=== PATIENT | female | born 1995 | race Caucasian/White ===

== ENCOUNTER 2017-04-03 00:23 | Emergency (ER) | payer OTHER ==
[~2017-04-03] VITALS: Ht 132.1 cm; Wt 55.0 kg
[2017-04-03] MEDS ORDERED: ONDANSETRON 2MG/ML, 2ML ONE (00:46)
[2017-04-03] MEDS ORDERED: ONDANSETRON 2MG/ML, 2ML IVPush ONE (01:00)
[2017-04-03] MEDS ORDERED: METOCLOPRAMIDE 5 MG/ML, 2ML IVPush ONE (01:00)
[2017-04-03] MEDS ORDERED: METOCLOPRAMIDE 5 MG/ML, 2ML ONE (01:03)
[2017-04-03 03:05] VITALS: BP 113/52
[2017-04-03 04:17] LABS: PATH.CAST-FLAG NOT PRESENT; SPERM-FLAG NOT PRESENT; SRC-FLAG NOT PRESENT; XTAL-FLAG NOT PRESENT; YLC-FLAG NOT PRESENT
== END 2017-04-03 03:06 | disposition home or self-care (01) ==
LOC: ED 03:00
DX: O26.892 Other specified pregnancy related conditions, second trimester (principal); Z3A.18 18 weeks gestation of pregnancy; Z88.5 Allergy status to narcotic agent; Z88.8 Allergy status to other drugs, medicaments and biological substances
CPT/HCPCS: 76805; 81001; 87086; 96374; 99285; J2765

== ENCOUNTER 2020-03-21 13:27 | Inpatient (IN) | payer MEDICAID, OTHER ==
[~2020-03-21] VITALS: Ht 134.6 cm; Wt 53.2 kg
[2020-03-21] MEDS ORDERED: ACETAMINOPHEN 500 MG TABLET ONE (13:56)
[2020-03-21] MEDS ORDERED: SODIUM CHLORIDE FLUSH 10ML SYR IVF ONE (14:00)
[2020-03-21] MEDS ORDERED: METOCLOPRAMIDE 5 MG/ML, 2ML IVPush ONE (14:00)
[2020-03-21] MEDS ORDERED: ACETAMINOPHEN 500 MG TABLET PO ONE (14:00)
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
[2020-03-21] MEDS ORDERED: METOCLOPRAMIDE 5 MG/ML, 2ML ONE (14:25)
[2020-03-21] MEDS ORDERED: HYDROmorphone 1 MG/ML, 1ML INJ ONE ×2 (14:25→17:52)
[2020-03-21] MEDS: HYDROmorphone 2 MG/ML, 1ML IVPush PRN ×2 (14:27→17:54)
--- NOTE | 2020-03-21 14:35 | NUR ---
MEDICATED PER ORDERS, IV AND LABS COMPLETE.
[2020-03-21 14:49] LABS: MEAN CORPUSCULAR HEMOGLOBIN 27.5 pg (27.0-34.8); MEAN CORPUSCULAR HGB CONC 33.5 g/dL (32.4-35.8); MEAN CORPUSCULAR VOLUME 82.1 fL (80-100); MEAN PLATELET VOLUME 8.2 fL (7.4-10.4); PLATELET COUNT 379 x10^3/uL (130-400); RED BLOOD COUNT 3.95 x10^6/uL (3.82-5.3); RED CELL DISTRIBUTION WIDTH 15.9 % (9.6-15.2)
[2020-03-21 15:00] LABS: ALANINE AMINOTRANSFERASE 41 U/L (12-78); ALBUMIN 2.3 g/dL (3.4-5.0); ANION GAP 9 mmol/L (5-15); CALCIUM 8.3 mg/dL (8.5-10.1); CHLORIDE 99 mmol/L (98-107); CREATININE 0.48 mg/dL (0.55-1.02)
[2020-03-21 15:02] LABS: ALKALINE PHOSPHATASE 279 U/L (45-117); BILIRUBIN,TOTAL 0.6 mg/dL (0.2-1.0); TOTAL PROTEIN 7.4 g/dL (6.4-8.2)
[2020-03-21 15:14] LABS: MD YES
[2020-03-21 15:17] LABS: BAND#(MANUAL) 0.41 x10^3/uL; BANDS%(MANUAL) 2 % (0-7); LYMPH#(MANUAL) 3.93 x10^3/uL (1-3.4); LYMPHS% (MANUAL) 19 % (22-44); MONOS#(MANUAL) 1.66 x10^3/uL (0.3-2.7); MONOS% (MANUAL) 8 % (2-9); SEGS% (MANUAL) 71 % (42-75)
[2020-03-21 15:18] LABS: <PLATELET ESTIMATE> ADEQUATE; <PLT MORPHOLOGY> NORMAL PLT MORPH; ANISOCYTOSIS 1+
--- NOTE | 2020-03-21 15:23 | NUR ---
ASSISTED TO [facility] FOR UA.
--- NOTE | 2020-03-21 16:05 | NUR ---
PT RESTING, TEMP DECREASED TO 100.4. VSS
[2020-03-21 16:33] LABS: MICROSCOPIC INDICATED
--- NOTE | 2020-03-21 17:11 | NUR ---
pt in ct
[2020-03-21] MEDS ORDERED: CEFTRIAXONE PMX 2GM/50ML 50 ML ONE (17:23)
[2020-03-21] MEDS ORDERED: SODIUM CHLORIDE 0.9% 1,000ML IVBOLUS ONE (17:30)
[2020-03-21] MEDS ORDERED: CEFTRIAXONE PMX 2GM/50ML 50 ML IV SCH (17:30)
[2020-03-21] MEDS ORDERED: GADOTERATE 7.5 MMOL/15 ML SYR ONE (17:30)
--- NOTE | 2020-03-21 18:01 | NUR ---
PT BACK FROM MRI. MEDICATED FOR PAIN, ABX AND IVF. BLOOD CULTURES COMPLETE. [facility] AT BEDSIDE.
--- NOTE | 2020-03-21 18:48 | NUR ---
REPORT TO SHEELA
[2020-03-21] MEDS ORDERED: POLYETHYLENE GLYCOL 17 GM PACKET PO PRN (19:00)
[2020-03-21] MEDS ORDERED: BISACODYL 10 MG SUPP PR PRN (19:00)
--- NOTE | 2020-03-21 19:13 | NUR ---
PT PROVIDED ICE CHIPS AND BLANKET REQUESTED NO FURTHER NEEDS AT THIS TIME.
--- NOTE | 2020-03-21 19:52 | NUR ---
PT REMOVED MONITORING DOES NOT WANT VITALS AT THIS TIME. STS SHE WANTS TO JUST SLEEP
--- NOTE | 2020-03-21 20:29 | NUR ---
REPORT TO SANTOS LOZANO PT READY FOR TRANSPORT TO [facility]
[2020-03-21 21:00] VITALS: BP 126/66
[2020-03-21] MEDS ORDERED: VANCOMYCIN PER PHARMACY MC PRN (21:00)
[2020-03-21] MEDS: KETOROLAC 30 MG/1 ML IVPush PRN (21:27)
[2020-03-21] MEDS: HYDROmorphone 1 MG/ML, 1ML INJ IVPush PRN (21:28)
[2020-03-21] MEDS ORDERED: PHARMACOKINETIC MONITORING MC PRN (21:30)
[2020-03-21] MEDS ORDERED: PHARMACOKINETIC CONSULTATION MC ONE (21:30)
[2020-03-21] MEDS ORDERED: VANCOMYCIN 1,200 MG in SODIUM CHLORIDE 0.9% 250 ML IV ONE (21:30)
[2020-03-21] MEDS: SODIUM CHLORIDE 0.9% 1,000 ML IV SCH (22:02)
[2020-03-21] MEDS: PIPERACILLIN/TAZO/PMX 3.375GM 50 ML IV SCH (22:03)
[2020-03-21] MEDS: POTASSIUM CHLORIDE 20 MEQ TAB.ER.PRT PO SCH (22:03)
[2020-03-21] MEDS: HEPARIN 5,000 UNITS/ML, 1ML SQ SCH (22:04)
[2020-03-22 01:31] VITALS: BP 116/55
[2020-03-22] MEDS: HYDROmorphone 1 MG/ML, 1ML INJ IVPush PRN (02:54)
[2020-03-22 03:19] LABS: MICROSCOPIC INDICATED
[2020-03-22 03:25] LABS: AMPHETAMINE SCREEN, URINE Negative (Negative); BARBITURATE SCREEN, URINE Negative (Negative); BENZODIAZEPINE SCREEN, URINE Negative (Negative); CANNABINOID SCREEN, URINE Positive (Negative); COCAINE SCREEN, URINE Negative (Negative); METHADONE SCREEN, URINE Negative (Negative); OPIATE SCREEN, URINE Positive (Negative)
[2020-03-22] MEDS: KETOROLAC 30 MG/1 ML IVPush PRN ×4 (04:34→23:22)
[2020-03-22] MEDS: PIPERACILLIN/TAZO/PMX 3.375GM 50 ML IV SCH ×4 (04:37→23:05)
[2020-03-22] MEDS: HEPARIN 5,000 UNITS/ML, 1ML SQ SCH ×3 (06:09→22:00)
[2020-03-22 06:10] LABS: MEAN CORPUSCULAR HEMOGLOBIN 27.2 pg (27.0-34.8); MEAN CORPUSCULAR VOLUME 82.4 fL (80-100); MEAN PLATELET VOLUME 8.4 fL (7.4-10.4); PLATELET COUNT 379 x10^3/uL (130-400); RED BLOOD COUNT 3.89 x10^6/uL (3.82-5.3); RED CELL DISTRIBUTION WIDTH 16.3 % (9.6-15.2)
[2020-03-22 06:15] LABS: ANION GAP 9 mmol/L (5-15); CALCIUM 8.1 mg/dL (8.5-10.1); CHLORIDE 102 mmol/L (98-107)
[2020-03-22] MEDS ORDERED: OMNIPAQUE 350 MG/ML, 100ML BOTTLE ONE (06:17)
[2020-03-22 06:18] LABS: CREATININE 0.54 mg/dL (0.55-1.02)
[2020-03-22 07:29] LABS: BASOPHILS # (AUTO) 0.01 x10^3/uL (0-0.1); BASOPHILS % (AUTO) 0 % (0-1); EOSINOPHILS % (AUTO) 0 % (1-7); LYMPHOCYTES # (AUTO) 1.51 x10^3/uL (1-3.4); LYMPHOCYTES % (AUTO) 8 % (22-44); MD SCAN; MONOCYTES # (AUTO) 1.26 x10^3/uL (0.2-0.8); MONOCYTES % (AUTO) 6 % (2-9); NEUTROPHILS # (AUTO) 17.36 x10^3/uL (1.8-6.8); NEUTROPHILS % (AUTO) 86 % (42-75)
[2020-03-22] MEDS: SODIUM CHLORIDE 0.9% 1,000 ML IV SCH (08:00)
[2020-03-22 08:09] VITALS: BP 127/72
[2020-03-22] MEDS: POTASSIUM CHLORIDE 20 MEQ TAB.ER.PRT PO SCH (08:34)
[2020-03-22] MEDS: SENNA/DOCUSATE TABLET PO SCH (08:35)
[2020-03-22] MEDS: VANCOMYCIN PMX 1GM/200ML 200 ML IV SCH ×2 (11:26→23:55)
[2020-03-22] MEDS: ACETAMINOPHEN 325 MG TABLET PO PRN ×2 (11:26→23:05)
[2020-03-22 14:54] VITALS: BP 115/64
[2020-03-22] MEDS ORDERED: LIDOCAINE 1%, 10ML ONE (15:43)
[2020-03-22] MEDS ORDERED: FLUMAZENIL 0.1 MG/1 ML, 5ML ONE (15:52)
[2020-03-22] MEDS ORDERED: MIDAZOLAM 1 MG/ML, 5ML ONE (15:52)
[2020-03-22] MEDS ORDERED: FENTANYL PF 100 MCG/2ML ONE (15:52)
[2020-03-22] MEDS ORDERED: NALOXONE 1 MG/ML, 2ML ONE (15:52)
[2020-03-22 19:58] VITALS: BP 117/66
[2020-03-22] MEDS: OXYcodone IR 5MG TABLET PO PRN (22:17)
[2020-03-23] MEDS: SODIUM CHLORIDE 0.9% 1,000 ML IV SCH ×2 (02:49→23:37)
[2020-03-23 04:05] VITALS: BP 97/60
[2020-03-23] MEDS: PIPERACILLIN/TAZO/PMX 3.375GM 50 ML IV SCH ×3 (05:20→17:33)
[2020-03-23] MEDS: KETOROLAC 30 MG/1 ML IVPush PRN ×3 (05:20→18:49)
[2020-03-23] MEDS: HEPARIN 5,000 UNITS/ML, 1ML SQ SCH ×3 (05:20→23:38)
[2020-03-23 05:21] LABS: MEAN CORPUSCULAR HEMOGLOBIN 27.3 pg (27.0-34.8); MEAN CORPUSCULAR HGB CONC 32.7 g/dL (32.4-35.8); MEAN CORPUSCULAR VOLUME 83.6 fL (80-100); MEAN PLATELET VOLUME 8.5 fL (7.4-10.4); PLATELET COUNT 430 x10^3/uL (130-400); RED CELL DISTRIBUTION WIDTH 16.4 % (9.6-15.2)
[2020-03-23 05:26] LABS: ANION GAP 6 mmol/L (5-15); CALCIUM 8.2 mg/dL (8.5-10.1); CHLORIDE 109 mmol/L (98-107)
[2020-03-23 07:08] LABS: BASOPHILS # (AUTO) 0.08 x10^3/uL (0-0.1); BASOPHILS % (AUTO) 0 % (0-1); EOSINOPHILS # (AUTO) 0.07 x10^3/uL (0-0.4); EOSINOPHILS % (AUTO) 0 % (1-7); LYMPHOCYTES # (AUTO) 2.17 x10^3/uL (1-3.4); LYMPHOCYTES % (AUTO) 12 % (22-44); MD SCAN; MONOCYTES # (AUTO) 0.65 x10^3/uL (0.2-0.8); MONOCYTES % (AUTO) 4 % (2-9); NEUTROPHILS # (AUTO) 15.11 x10^3/uL (1.8-6.8); NEUTROPHILS % (AUTO) 84 % (42-75)
[2020-03-23 07:36] VITALS: BP 122/69
[2020-03-23] MEDS: SENNA/DOCUSATE TABLET PO SCH ×2 (08:31→08:33)
[2020-03-23] MEDS: SENNOSIDES 8.6 MG TABLET PO SCH ×2 (08:31→08:33)
[2020-03-23] MEDS: OXYcodone IR 5MG TABLET PO PRN ×3 (08:32→21:49)
[2020-03-23] MEDS ORDERED: POTASSIUM PHOSPHATE 44 MEQ in SODIUM CHLORIDE 0.9% 500 ML IV ONE (09:00)
[2020-03-23] MEDS: VANCOMYCIN PMX 1GM/200ML 200 ML IV SCH ×2 (11:34→23:00)
[2020-03-23] MEDS: ACETAMINOPHEN 325 MG TABLET PO PRN ×2 (12:34→18:49)
[2020-03-23 12:46] VITALS: BP 127/71
[2020-03-23 14:50] LABS: CLOSTRIDIUM DIFFICILE ANTIGEN NEGATIVE; CLOSTRIDIUM DIFFICILE TOXIN NEGATIVE (Negative)
[2020-03-23 18:41] VITALS: BP 128/66
[2020-03-23] MEDS: VANCOMYCIN 1,200 MG in SODIUM CHLORIDE 0.9% 250 ML IV SCH (23:50)
[2020-03-24 01:09] VITALS: BP 120/69
[2020-03-24] MEDS: ACETAMINOPHEN 325 MG TABLET PO PRN ×2 (01:18→19:54)
[2020-03-24] MEDS: KETOROLAC 30 MG/1 ML IVPush PRN ×3 (01:22→20:25)
[2020-03-24] MEDS: OXYcodone IR 5MG TABLET PO PRN ×5 (02:42→16:48)
[2020-03-24 05:45] LABS: BASOPHILS # (AUTO) 0.13 x10^3/uL (0-0.1); BASOPHILS % (AUTO) 1 % (0-1); EOSINOPHILS # (AUTO) 0.12 x10^3/uL (0-0.4); EOSINOPHILS % (AUTO) 1 % (1-7); LYMPHOCYTES # (AUTO) 1.56 x10^3/uL (1-3.4); LYMPHOCYTES % (AUTO) 9 % (22-44); MD NO; MEAN CORPUSCULAR HGB CONC 32.5 g/dL (32.4-35.8); MEAN CORPUSCULAR VOLUME 83.1 fL (80-100); MEAN PLATELET VOLUME 8.1 fL (7.4-10.4); MONOCYTES # (AUTO) 0.73 x10^3/uL (0.2-0.8); MONOCYTES % (AUTO) 4 % (2-9); NEUTROPHILS # (AUTO) 14.18 x10^3/uL (1.8-6.8); NEUTROPHILS % (AUTO) 85 % (42-75); PLATELET COUNT 437 x10^3/uL (130-400); RED BLOOD COUNT 3.61 x10^6/uL (3.82-5.3); RED CELL DISTRIBUTION WIDTH 16.6 % (9.6-15.2)
[2020-03-24 05:50] LABS: ANION GAP 6 mmol/L (5-15); CHLORIDE 110 mmol/L (98-107)
[2020-03-24 05:51] LABS: CREATININE 0.89 mg/dL (0.55-1.02)
[2020-03-24 06:39] VITALS: BP 103/63
[2020-03-24] MEDS ORDERED: POTASSIUM CHLORIDE 40 MEQ in SODIUM CHLORIDE 0.9% 500 ML IV ONE (08:00)
[2020-03-24] MEDS: SENNOSIDES 8.6 MG TABLET PO SCH (09:00)
[2020-03-24] MEDS: SENNA/DOCUSATE TABLET PO SCH (09:00)
[2020-03-24] MEDS ORDERED: ONDANSETRON 2MG/ML, 2ML ONE (10:13)
[2020-03-24] MEDS: HEPARIN 5,000 UNITS/ML, 1ML SQ SCH ×3 (10:18→23:39)
[2020-03-24] MEDS: SODIUM CHLORIDE 0.9% 1,000 ML IV SCH ×2 (10:20→23:40)
[2020-03-24] MEDS ORDERED: ONDANSETRON ODT 4 MG PO PRN (10:30)
[2020-03-24] MEDS ORDERED: ONDANSETRON 2MG/ML, 2ML IVPush PRN (10:30)
[2020-03-24] MEDS: VANCOMYCIN 1,200 MG in SODIUM CHLORIDE 0.9% 250 ML IV SCH (14:00)
[2020-03-24 15:02] VITALS: BP 120/72
[2020-03-24 19:23] VITALS: BP 116/51
[2020-03-25] MEDS: OXYcodone IR 5MG TABLET PO PRN ×6 (00:01→23:01)
[2020-03-25 00:12] VITALS: BP 125/71
[2020-03-25] MEDS: VANCOMYCIN 1,200 MG in SODIUM CHLORIDE 0.9% 250 ML IV SCH ×2 (02:33→15:02)
[2020-03-25] MEDS: KETOROLAC 30 MG/1 ML IVPush PRN ×2 (04:02→11:00)
[2020-03-25 04:47] LABS: HCT (SEDRATE) 27.3 % (34.6-47.8)
[2020-03-25 04:48] LABS: BASOPHILS # (AUTO) 0.08 x10^3/uL (0-0.1); BASOPHILS % (AUTO) 1 % (0-1); EOSINOPHILS # (AUTO) 0.16 x10^3/uL (0-0.4); EOSINOPHILS % (AUTO) 1 % (1-7); LYMPHOCYTES # (AUTO) 1.94 x10^3/uL (1-3.4); LYMPHOCYTES % (AUTO) 14 % (22-44); MD NO; MEAN CORPUSCULAR HEMOGLOBIN 26.7 pg (27.0-34.8); MEAN CORPUSCULAR VOLUME 83.4 fL (80-100); MEAN PLATELET VOLUME 8.8 fL (7.4-10.4); MONOCYTES # (AUTO) 0.62 x10^3/uL (0.2-0.8); MONOCYTES % (AUTO) 5 % (2-9); NEUTROPHILS % (AUTO) 80 % (42-75); PLATELET COUNT 386 x10^3/uL (130-400); RED BLOOD COUNT 3.23 x10^6/uL (3.82-5.3); RED CELL DISTRIBUTION WIDTH 16.4 % (9.6-15.2)
[2020-03-25 04:57] LABS: CHLORIDE 110 mmol/L (98-107)
[2020-03-25 05:08] LABS: ALANINE AMINOTRANSFERASE 36 U/L (12-78); ALBUMIN 1.6 g/dL (3.4-5.0); ALKALINE PHOSPHATASE 274 U/L (45-117); ANION GAP 7 mmol/L (5-15); BILIRUBIN,TOTAL 0.3 mg/dL (0.2-1.0); CALCIUM 7.6 mg/dL (8.5-10.1); CREATININE 1.13 mg/dL (0.55-1.02); TOTAL PROTEIN 6.1 g/dL (6.4-8.2)
[2020-03-25 06:20] VITALS: BP 120/69
[2020-03-25] MEDS: HEPARIN 5,000 UNITS/ML, 1ML SQ SCH ×3 (07:30→23:01)
[2020-03-25] MEDS: SENNOSIDES 8.6 MG TABLET PO SCH (09:00)
[2020-03-25] MEDS: SENNA/DOCUSATE TABLET PO SCH (09:00)
[2020-03-25] MEDS: ONDANSETRON 2MG/ML, 2ML IVPush PRN (09:09)
[2020-03-25] MEDS: SODIUM CHLORIDE 0.9% 1,000 ML IV SCH (09:12)
[2020-03-25] MEDS ORDERED: SODIUM PHOSPHATE 30 MMOL in SODIUM CHLORIDE 0.9% 500 ML IV ONE (10:30)
[2020-03-25 12:23] VITALS: BP 158/92
[2020-03-25] MEDS: CYCLOBENZAPRINE 10 MG TABLET PO PRN (13:08)
[2020-03-25] MEDS ORDERED: SODIUM CHLORIDE 0.9% 1,000 ML IV SCH (14:00)
[2020-03-25] MEDS ORDERED: OMNIPAQUE 350 MG/ML, 100ML BOTTLE ONE (14:42)
[2020-03-25 21:12] VITALS: BP 137/84
[2020-03-26] MEDS: KETOROLAC 30 MG/1 ML IVPush PRN ×3 (00:58→20:41)
[2020-03-26 01:10] VITALS: BP 114/75
[2020-03-26] MEDS: VANCOMYCIN 1,200 MG in SODIUM CHLORIDE 0.9% 250 ML IV SCH (02:04)
[2020-03-26] MEDS: OXYcodone IR 5MG TABLET PO PRN ×2 (05:18→21:17)
[2020-03-26] MEDS: SENNA/DOCUSATE TABLET PO SCH (07:57)
[2020-03-26] MEDS: SENNOSIDES 8.6 MG TABLET PO SCH (07:57)
[2020-03-26] MEDS: HEPARIN 5,000 UNITS/ML, 1ML SQ SCH ×2 (09:17→14:40)
[2020-03-26 09:28] VITALS: BP 113/71
[2020-03-26 10:04] LABS: MEAN CORPUSCULAR HGB CONC 32.8 g/dL (32.4-35.8); MEAN CORPUSCULAR VOLUME 82.2 fL (80-100); PLATELET COUNT 469 x10^3/uL (130-400); RED BLOOD COUNT 3.17 x10^6/uL (3.82-5.3); RED CELL DISTRIBUTION WIDTH 16.9 % (9.6-15.2)
[2020-03-26 10:16] LABS: ANION GAP 6 mmol/L (5-15); CALCIUM 7.4 mg/dL (8.5-10.1); CHLORIDE 111 mmol/L (98-107); CREATININE 1.14 mg/dL (0.55-1.02)
[2020-03-26] MEDS: DAPTOMYCIN 500 MG in SODIUM CHLORIDE 0.9% 100 ML IVPB SCH (10:21)
[2020-03-26 10:59] LABS: BASOPHILS # (AUTO) 0.02 x10^3/uL (0-0.1); BASOPHILS % (AUTO) 0 % (0-1); EOSINOPHILS # (AUTO) 0.13 x10^3/uL (0-0.4); EOSINOPHILS % (AUTO) 1 % (1-7); LYMPHOCYTES # (AUTO) 1.73 x10^3/uL (1-3.4); LYMPHOCYTES % (AUTO) 13 % (22-44); MD SCAN; MONOCYTES # (AUTO) 0.13 x10^3/uL (0.2-0.8); MONOCYTES % (AUTO) 1 % (2-9); NEUTROPHILS # (AUTO) 10.93 x10^3/uL (1.8-6.8); NEUTROPHILS % (AUTO) 85 % (42-75)
[2020-03-26] MEDS ORDERED: D5%-LACTATED RINGERS 1,000 ML IV SCH (11:30)
[2020-03-26] MEDS: HYDROmorphone 1 MG/ML, 1ML INJ IVPush PRN (12:11)
[2020-03-26] MEDS ORDERED: PROPOFOL 10 MG/ML, 50ML ONE (13:10)
[2020-03-26 14:04] VITALS: BP 110/79
[2020-03-26] MEDS ORDERED: LIDOCAINE 1%, 10ML ONE ×2 (14:13)
[2020-03-26] MEDS ORDERED: FENTANYL PF 100 MCG/2ML ONE (14:57)
[2020-03-26] MEDS ORDERED: FLUMAZENIL 0.1 MG/1 ML, 5ML ONE (14:57)
[2020-03-26] MEDS ORDERED: MIDAZOLAM 1 MG/ML, 5ML ONE (14:57)
[2020-03-26] MEDS ORDERED: NALOXONE 1 MG/ML, 2ML ONE (14:58)
[2020-03-26 19:04] VITALS: BP 114/74
[2020-03-26 20:37] VITALS: BP 105/69
[2020-03-26] MEDS: ACETAMINOPHEN 325 MG TABLET PO PRN (20:41)
[2020-03-27 00:43] VITALS: BP 105/64
[2020-03-27] MEDS: HEPARIN 5,000 UNITS/ML, 1ML SQ SCH ×3 (01:19→16:00)
[2020-03-27] MEDS: HYDROmorphone 1 MG/ML, 1ML INJ IVPush PRN ×3 (01:24→11:04)
[2020-03-27] MEDS: OXYcodone IR 5MG TABLET PO PRN ×2 (05:00→21:56)
[2020-03-27] MEDS: SENNA/DOCUSATE TABLET PO SCH (07:59)
[2020-03-27] MEDS: SENNOSIDES 8.6 MG TABLET PO SCH (08:01)
[2020-03-27 08:36] VITALS: BP 119/76
[2020-03-27 09:17] LABS: BASOPHILS # (AUTO) 0.04 x10^3/uL (0-0.1); BASOPHILS % (AUTO) 0 % (0-1); EOSINOPHILS # (AUTO) 0.12 x10^3/uL (0-0.4); EOSINOPHILS % (AUTO) 1 % (1-7); LYMPHOCYTES # (AUTO) 1.52 x10^3/uL (1-3.4); LYMPHOCYTES % (AUTO) 14 % (22-44); MD NO; MEAN CORPUSCULAR HEMOGLOBIN 26.2 pg (27.0-34.8); MEAN CORPUSCULAR VOLUME 82.1 fL (80-100); MEAN PLATELET VOLUME 8.1 fL (7.4-10.4); MONOCYTES # (AUTO) 0.81 x10^3/uL (0.2-0.8); MONOCYTES % (AUTO) 8 % (2-9); NEUTROPHILS # (AUTO) 8.14 x10^3/uL (1.8-6.8); NEUTROPHILS % (AUTO) 77 % (42-75); PLATELET COUNT 513 x10^3/uL (130-400); RED BLOOD COUNT 3.28 x10^6/uL (3.82-5.3); RED CELL DISTRIBUTION WIDTH 16.8 % (9.6-15.2)
[2020-03-27 09:26] LABS: ALANINE AMINOTRANSFERASE 25 U/L (12-78); ALBUMIN 1.9 g/dL (3.4-5.0); ANION GAP 5 mmol/L (5-15); CHLORIDE 108 mmol/L (98-107)
[2020-03-27 09:32] LABS: ALKALINE PHOSPHATASE 269 U/L (45-117); BILIRUBIN,TOTAL 0.2 mg/dL (0.2-1.0); TOTAL PROTEIN 6.7 g/dL (6.4-8.2)
[2020-03-27] MEDS: DAPTOMYCIN 500 MG in SODIUM CHLORIDE 0.9% 100 ML IVPB SCH (11:04)
[2020-03-27] MEDS: D5%-LACTATED RINGERS 1,000 ML IV SCH ×2 (11:05→20:45)
[2020-03-27] MEDS: FENTANYL PF 100 MCG/2ML IVPush PRN ×2 (14:10→20:44)
[2020-03-27 15:17] VITALS: BP 131/80
[2020-03-27 20:30] VITALS: BP 134/87
[2020-03-27] MEDS: ENOXAPARIN 40 MG/0.4 ML SQ SCH (20:44)
[2020-03-27] MEDS: ACETAMINOPHEN 325 MG TABLET PO PRN (20:44)
[2020-03-28 00:04] VITALS: BP 100/60
[2020-03-28] MEDS: FENTANYL PF 100 MCG/2ML IVPush PRN ×6 (00:40→21:54)
[2020-03-28] MEDS: OXYcodone IR 5MG TABLET PO PRN ×5 (04:02→23:16)
[2020-03-28] MEDS: SENNOSIDES 8.6 MG TABLET PO SCH (09:53)
[2020-03-28] MEDS: SENNA/DOCUSATE TABLET PO SCH (09:53)
[2020-03-28] MEDS: D5%-LACTATED RINGERS 1,000 ML IV SCH (10:00)
[2020-03-28] MEDS ORDERED: OMNIPAQUE 350 MG/ML, 100ML BOTTLE ONE (10:49)
[2020-03-28] MEDS: DAPTOMYCIN 500 MG in SODIUM CHLORIDE 0.9% 100 ML IVPB SCH (11:39)
[2020-03-28 12:00] VITALS: BP 124/71
[2020-03-28] MEDS: CYCLOBENZAPRINE 10 MG TABLET PO PRN ×2 (14:13→21:53)
[2020-03-28 19:17] VITALS: BP 117/65
[2020-03-28] MEDS: ENOXAPARIN 40 MG/0.4 ML SQ SCH (19:30)
[2020-03-29] MEDS: FENTANYL PF 100 MCG/2ML IVPush PRN ×2 (01:54→06:13)
[2020-03-29] MEDS: OXYcodone IR 5MG TABLET PO PRN ×4 (05:33→21:32)
[2020-03-29 07:05] VITALS: BP 114/68
[2020-03-29] MEDS: SENNOSIDES 8.6 MG TABLET PO SCH (09:01)
[2020-03-29] MEDS: SENNA/DOCUSATE TABLET PO SCH (09:01)
[2020-03-29] MEDS: ACETAMINOPHEN 325 MG TABLET PO PRN ×2 (09:07→22:41)
[2020-03-29] MEDS: DAPTOMYCIN 500 MG in SODIUM CHLORIDE 0.9% 100 ML IVPB SCH (10:50)
[2020-03-29 11:27] LABS: BASOPHILS % (AUTO) 1 % (0-1); EOSINOPHILS # (AUTO) 0.19 x10^3/uL (0-0.4); EOSINOPHILS % (AUTO) 2 % (1-7); LYMPHOCYTES # (AUTO) 1.93 x10^3/uL (1-3.4); LYMPHOCYTES % (AUTO) 20 % (22-44); MD NO; MEAN CORPUSCULAR HEMOGLOBIN 27.3 pg (27.0-34.8); MEAN CORPUSCULAR VOLUME 82.6 fL (80-100); MEAN PLATELET VOLUME 7.9 fL (7.4-10.4); MONOCYTES # (AUTO) 0.68 x10^3/uL (0.2-0.8); MONOCYTES % (AUTO) 7 % (2-9); NEUTROPHILS # (AUTO) 6.87 x10^3/uL (1.8-6.8); NEUTROPHILS % (AUTO) 70 % (42-75); PLATELET COUNT 674 x10^3/uL (130-400); RED BLOOD COUNT 3.56 x10^6/uL (3.82-5.3); RED CELL DISTRIBUTION WIDTH 16.6 % (9.6-15.2)
[2020-03-29 11:33] LABS: ALBUMIN 2.2 g/dL (3.4-5.0); ANION GAP 7 mmol/L (5-15); CALCIUM 8.4 mg/dL (8.5-10.1); CHLORIDE 107 mmol/L (98-107); CREATININE 1.07 mg/dL (0.55-1.02)
[2020-03-29 11:35] LABS: ALANINE AMINOTRANSFERASE 21 U/L (12-78); ALKALINE PHOSPHATASE 226 U/L (45-117); BILIRUBIN,TOTAL 0.2 mg/dL (0.2-1.0); TOTAL PROTEIN 7.7 g/dL (6.4-8.2)
[2020-03-29 12:58] VITALS: BP 117/75
[2020-03-29] MEDS: D5%-LACTATED RINGERS 1,000 ML IV SCH (17:39)
[2020-03-29 20:22] VITALS: BP 123/74
[2020-03-29] MEDS: ENOXAPARIN 40 MG/0.4 ML SQ SCH (21:32)
[2020-03-30 00:33] VITALS: BP 106/61
[2020-03-30] MEDS: OXYcodone IR 5MG TABLET PO PRN ×4 (04:40→20:42)
[2020-03-30] MEDS: ACETAMINOPHEN 325 MG TABLET PO PRN ×3 (04:41→21:29)
[2020-03-30] MEDS: D5%-LACTATED RINGERS 1,000 ML IV SCH (06:17)
[2020-03-30 06:54] LABS: BASOPHILS # (AUTO) 0.06 x10^3/uL (0-0.1); BASOPHILS % (AUTO) 1 % (0-1); EOSINOPHILS # (AUTO) 0.23 x10^3/uL (0-0.4); EOSINOPHILS % (AUTO) 3 % (1-7); LYMPHOCYTES % (AUTO) 24 % (22-44); MD NO; MEAN CORPUSCULAR HEMOGLOBIN 26.8 pg (27.0-34.8); MEAN CORPUSCULAR HGB CONC 32.6 g/dL (32.4-35.8); MEAN CORPUSCULAR VOLUME 82.2 fL (80-100); MEAN PLATELET VOLUME 7.7 fL (7.4-10.4); MONOCYTES # (AUTO) 0.78 x10^3/uL (0.2-0.8); MONOCYTES % (AUTO) 9 % (2-9); NEUTROPHILS # (AUTO) 5.27 x10^3/uL (1.8-6.8); NEUTROPHILS % (AUTO) 63 % (42-75); PLATELET COUNT 605 x10^3/uL (130-400); RED BLOOD COUNT 3.34 x10^6/uL (3.82-5.3); RED CELL DISTRIBUTION WIDTH 16.1 % (9.6-15.2)
[2020-03-30 06:59] VITALS: BP 132/72
[2020-03-30 07:05] LABS: ALANINE AMINOTRANSFERASE 17 U/L (12-78); ALBUMIN 1.9 g/dL (3.4-5.0); ANION GAP 4 mmol/L (5-15); CALCIUM 8.1 mg/dL (8.5-10.1); CHLORIDE 109 mmol/L (98-107); CREATININE 0.89 mg/dL (0.55-1.02)
[2020-03-30 07:07] LABS: ALKALINE PHOSPHATASE 179 U/L (45-117); BILIRUBIN,TOTAL 0.2 mg/dL (0.2-1.0); TOTAL PROTEIN 6.8 g/dL (6.4-8.2)
[2020-03-30] MEDS: SENNA/DOCUSATE TABLET PO SCH (09:00)
[2020-03-30] MEDS: SENNOSIDES 8.6 MG TABLET PO SCH (09:42)
[2020-03-30] MEDS ORDERED: OMNIPAQUE 350 MG/ML, 100ML BOTTLE ONE (10:49)
[2020-03-30] MEDS: DAPTOMYCIN 500 MG in SODIUM CHLORIDE 0.9% 100 ML IVPB SCH (12:06)
[2020-03-30 13:08] VITALS: BP 149/80
[2020-03-30 19:03] VITALS: BP 102/61
[2020-03-30] MEDS: ONDANSETRON 2MG/ML, 2ML IVPush PRN (20:42)
[2020-03-30] MEDS: ENOXAPARIN 40 MG/0.4 ML SQ SCH (20:42)
[2020-03-31 00:11] VITALS: BP 101/65
[2020-03-31] MEDS: ACETAMINOPHEN 325 MG TABLET PO PRN ×5 (02:28→23:58)
[2020-03-31] MEDS: OXYcodone IR 5MG TABLET PO PRN ×5 (02:28→23:58)
[2020-03-31] MEDS: ONDANSETRON 2MG/ML, 2ML IVPush PRN ×5 (02:28→23:58)
[2020-03-31 06:32] VITALS: BP 122/67
[2020-03-31 07:21] LABS: ALANINE AMINOTRANSFERASE 17 U/L (12-78); ALBUMIN 2.2 g/dL (3.4-5.0); ANION GAP 6 mmol/L (5-15); CALCIUM 8.3 mg/dL (8.5-10.1); CHLORIDE 107 mmol/L (98-107); CREATININE 0.94 mg/dL (0.55-1.02)
[2020-03-31 07:24] LABS: ALKALINE PHOSPHATASE 182 U/L (45-117); BILIRUBIN,TOTAL 0.2 mg/dL (0.2-1.0); TOTAL PROTEIN 7.3 g/dL (6.4-8.2)
[2020-03-31] MEDS: SENNA/DOCUSATE TABLET PO SCH (08:05)
[2020-03-31] MEDS: SENNOSIDES 8.6 MG TABLET PO SCH (08:06)
[2020-03-31] MEDS: DAPTOMYCIN 500 MG in SODIUM CHLORIDE 0.9% 100 ML IVPB SCH (10:47)
[2020-03-31 13:18] VITALS: BP 100/52
[2020-03-31 18:29] VITALS: BP 122/75
[2020-03-31] MEDS: ENOXAPARIN 40 MG/0.4 ML SQ SCH (20:15)
[2020-04-01 00:02] VITALS: BP 117/79
[2020-04-01] MEDS: ONDANSETRON 2MG/ML, 2ML IVPush PRN ×3 (06:10→19:28)
[2020-04-01] MEDS: ACETAMINOPHEN 325 MG TABLET PO PRN ×3 (06:10→17:54)
[2020-04-01] MEDS: OXYcodone IR 5MG TABLET PO PRN ×2 (06:10→17:42)
[2020-04-01 07:10] VITALS: BP 105/67
[2020-04-01] MEDS ORDERED: VANCOMYCIN PER PHARMACY MC PRN (08:30)
[2020-04-01] MEDS: SENNA/DOCUSATE TABLET PO SCH (10:59)
[2020-04-01] MEDS: SENNOSIDES 8.6 MG TABLET PO SCH (11:01)
[2020-04-01] MEDS ORDERED: VANCOMYCIN 1,300 MG in SODIUM CHLORIDE 0.9% 250 ML IV ONE (11:30)
[2020-04-01] MEDS ORDERED: PHARMACOKINETIC MONITORING MC PRN (11:30)
[2020-04-01] MEDS ORDERED: PHARMACOKINETIC CONSULTATION MC ONE (11:30)
[2020-04-01 12:57] VITALS: BP 110/72
[2020-04-01 19:00] VITALS: BP 108/57
[2020-04-01] MEDS: ENOXAPARIN 40 MG/0.4 ML SQ SCH (21:35)
[2020-04-02 00:18] VITALS: BP 120/77
[2020-04-02] MEDS: OXYcodone IR 5MG TABLET PO PRN ×3 (03:47→17:33)
[2020-04-02] MEDS: ACETAMINOPHEN 325 MG TABLET PO PRN ×4 (03:47→21:14)
[2020-04-02] MEDS: ONDANSETRON 2MG/ML, 2ML IVPush PRN ×4 (03:55→21:14)
[2020-04-02 04:40] LABS: CREATININE 0.97 mg/dL (0.55-1.02)
[2020-04-02] MEDS: VANCOMYCIN 1,200 MG in SODIUM CHLORIDE 0.9% 250 ML IV SCH ×2 (05:25→22:59)
[2020-04-02 06:25] VITALS: BP 109/66
[2020-04-02 07:24] VITALS: BP 108/67
[2020-04-02] MEDS: SENNA/DOCUSATE TABLET PO SCH (08:15)
[2020-04-02] MEDS: SENNOSIDES 8.6 MG TABLET PO SCH (08:15)
[2020-04-02 12:31] VITALS: BP 113/72
[2020-04-02 18:50] VITALS: BP 99/55
[2020-04-02] MEDS: ENOXAPARIN 40 MG/0.4 ML SQ SCH (21:15)
[2020-04-03 00:20] VITALS: BP 95/56
[2020-04-03] MEDS: ONDANSETRON 2MG/ML, 2ML IVPush PRN ×3 (02:11→11:34)
[2020-04-03] MEDS: ACETAMINOPHEN 325 MG TABLET PO PRN ×3 (02:11→11:34)
[2020-04-03] MEDS: OXYcodone IR 5MG TABLET PO PRN ×2 (02:11→11:34)
[2020-04-03 08:01] VITALS: BP 116/78
[2020-04-03] MEDS: SENNA/DOCUSATE TABLET PO SCH (08:29)
[2020-04-03] MEDS: SENNOSIDES 8.6 MG TABLET PO SCH (08:29)
[2020-04-03 12:43] VITALS: BP 96/61
[2020-04-03] MEDS ORDERED: ONDA4TAB13 PO (16:49)
[2020-04-03] MEDS ORDERED: ACET325T26 PO (16:49)
[2020-04-03] MEDS: VANCOMYCIN 1,200 MG in SODIUM CHLORIDE 0.9% 250 ML IV SCH (17:08)
== END 2020-04-03 19:10 | disposition home or self-care (01) | DRG 720 ==
LOC: ED 16:46 → EDIP 17:20 → 4NW 20:57 → 3N 03-23 16:18
PROVIDERS: ADMIT Family Medicine; ATTEND Internal Medicine
PROC: 0K9P30Z Drainage of Left Hip Muscle with Drainage Device, Percutaneous Approach (ICD-10-PCS; principal; 2020-03-22)
PROC: 0T9B70Z Drainage of Bladder with Drainage Device, Via Natural or Artificial Opening (ICD-10-PCS; 2020-03-22)
PROC: 0W9F3ZZ Drainage of Abdominal Wall, Percutaneous Approach (ICD-10-PCS; 2020-03-26)
PROC: 0W993ZZ Drainage of Right Pleural Cavity, Percutaneous Approach (ICD-10-PCS; 2020-03-29)
PROC: 02HV33Z Insertion of Infusion Device into Superior Vena Cava, Percutaneous Approach (ICD-10-PCS; 2020-04-01)
PROC: B5181ZA Fluoroscopy of Superior Vena Cava using Low Osmolar Contrast, Guidance (ICD-10-PCS; 2020-04-01)
PROC: B548ZZA Ultrasonography of Superior Vena Cava, Guidance (ICD-10-PCS; 2020-04-01)
DX: A41.02 Sepsis due to Methicillin resistant Staphylococcus aureus (principal); E87.1 Hypo-osmolality and hyponatremia; G06.2 Extradural and subdural abscess, unspecified; K68.12 Psoas muscle abscess; Z20.828 Contact with and (suspected) exposure to other viral communicable diseases; D64.9 Anemia, unspecified; E83.39 Other disorders of phosphorus metabolism; E87.6 Hypokalemia; F12.10 Cannabis abuse, uncomplicated; I27.20 Pulmonary hypertension, unspecified; J90 Pleural effusion, not elsewhere classified; M00.9 Pyogenic arthritis, unspecified; N17.0 Acute kidney failure with tubular necrosis; T63.331A Toxic effect of venom of brown recluse spider, accidental (unintentional), initial encounter; Z80.0 Family history of malignant neoplasm of digestive organs; Z80.1 Family history of malignant neoplasm of trachea, bronchus and lung; Z80.3 Family history of malignant neoplasm of breast; Z82.5 Family history of asthma and other chronic lower respiratory diseases; Z98.891 History of uterine scar from previous surgery; W18.39XA Other fall on same level, initial encounter; Y93.89 Activity, other specified; Y92.89 Other specified places as the place of occurrence of the external cause; Y99.8 Other external cause status
CPT/HCPCS: J3490 ×2; 10030; 32555; 36415; 36573; 71045; 71275; 72158; 74177; 75989; 76705; 80048; 80053; 80202; 80307; 81001; 82550; 82565; 82945; 83605; 83615; 83735; 84100; 84157; 84520; 85025; 85651; 86140; 87015; 87040; 87070; 87075; 87077; 87086; 87102; 87116; 87147; 87186; 87205; 87206; 87324; 87635; 89051; 93306; 93312; 93321; 93325; 96374; 99156; 99157; 99285; G0378; J0696; J0878; J1170; J1644; J1650; J1885; J2250; J2405; J2543; J2704; J3010; J3370; J3480; Q0162; Q9967; A9575; C1729; C1751; J2310; J2765; J7030; J7040; J7050; J7121